=== PATIENT | male | born 1975 | race Caucasian/White ===

== ENCOUNTER 2025-07-07 09:33 | Emergency (ER) | payer OTHER, MEDICAID ==
[~2025-07-07] VITALS: Ht 193 cm; Wt 110.9 kg
[2025-07-07 09:51] VITALS: BP 128/83; PULSE 79; RESP 18; TEMP 97.6; O2SAT 98
[2025-07-07] MEDS ORDERED: CARV3.122 PO (10:07)
--- NOTE | 2025-07-07 10:07 | Physician Documentation ---
HPI ~ General Chief Complaint: Medication Refill Stated Complaint: MED REQUEST Time Seen by MD: 09:58 History of Present Illness HPI Comments This is a 49-year-old gentleman, currently homeless, previously homeless in [facility], moved to [place] to be at the [employer], presents with a request for refill for carvedilol. He also wants to establish with the Cardiology. He used to be followed by [facility]. He denies any somatic complaints. Denies any chest pain or difficulty breathing. States that he is now drug-free and alcohol free. Medication Reconciliation Allergies: Coded Allergies: No Known Allergies (Unverified , 07/07/25) Review of Systems ROS 10 point review of systems was performed and unless noted above in HPI is negative for acute process/complaint. Physical Exam Physical Exam Vital Signs: Temperature: 97.6, Source: Temporal, Heart Rate: 79, Respiratory Rate: 18, BP: 128/83, Pulse Oximetry: 98, Weight: 110.900 Oxygen Flow Rate: 0 Physical Exam Physical examination: GENERAL: Awake, alert, oriented, GCS 15, no apparent distress, non-toxic appearing, answers questions, follows commands appropriately. Examined in triage HEENT: Atraumatic, normocephalic, pupils equal, extraocular muscles intact Active gross movements, sclerae anicteric, mucus membranes moist, no stridor. NECK: Midline, no JVD CARDIOVASCULAR: Good skin perfusion without evidence of pallor, mottling. PULMONARY: Nonlabored, symmetric chest rise, no audible wheezing, no accessory muscle use, no respiratory distress, speaking in full sentences. GASTROINTESTINAL: Not distended. NEUROLOGIC: Lucid with normal mental status. Normal facial symmetry. Moves all extremities symmetrically and with purpose. No truncal ataxia. Speech is fluid without evidence of dysarthria or aphasia, no focal deficits appreciated. EXTREMITIES: Acute deformities Skin: warm, dry PSYCHIATRIC: Normal affect, normal insight, normal concentration. Focused exam: [] Progress Results/Orders Results/Orders Vital Signs 07/07/25 09:51 Temp 97.6 Pulse 79 Resp 18 B/P (MAP) 128/83 Pulse Ox 98 O2 Flow Rate 0 Medical Decision Making Additional information obtaine: N/A (Attempted to obtain [place] records, nothing is visible) Findings Facility Status: ED Holds, E process The plan was discussed with the patient, who demonstrates clear understanding of the plan and is in agreement with the plan unless otherwise noted in the chart. All questions have been answered, all concerns were addressed unless otherwise documented. I was available throughout their ED stay for frequent reassessment and questions. Differential Diagnoses (considered and possible or likely): [Medication refill, hypotension, medication noncompliance, homelessness, poor health literacy] ??Differential Diagnoses (considered and unlikely, not requiring evaluation currently): [Denies any somatic complaints] MDM Data Please see [facility] for the following: Independent Historians and external Records Review. Historian: [Patient] Independent Historians: ?[Record review attempt] Medication Management: [Reviewed medication list] Social History and determinants: [Reviewed] Please see the body of the note for the following: Any independent interpretations of ECG, imaging studies. All vitals signs/haemodynamics, ordered tests were independently reviewed and interpreted by myself. Nursing triage complaint and vitals reviewed, additional nursing notes were reviewed as available and I agree unless otherwise noted or documented in contradiction in the chart Vital Signs: Independently reviewed Labs: Independently interpreted Imaging: Independently interpreted Old Medical Records: Independently reviewed, see [facility] for relevant summary and information Additionally notably showing: [This is now hemodynamically stable] Tests considered but not ordered include: [Hematologic workup and imaging has been considered but does not appear to be necessary given clinical nature of diagnosis] Social Determinants of Health Impact: Patient was evaluated in [facility], [facility] [place] to healthcare due to below par ratio of patient to medical providers. [] Comorbid Conditions Impacting Present Evaluation and Care/Treatment: [Hypotension, homelessness] Management Discussions with other Healthcare Providers: [none] Treatment and Disposition Medication Management (Given or considered): []. See EMR for details Consideration for Hospitalization/Escalation/Deescalation of Care: Admission for observation has been considered, [however the patient is able to tolerate p.o., their symptoms are controlled, they are able to rely on oral medications, and t heir chief complaint/diagnosis can be managed on outpatient basis.] ?ED Course:?[No clinical deterioration] ?Shared decision making:?[Patient is hemodynamically stable for discharge home with follow with their primary care provider. [ ] Specific and cautious return precautions provided and discussed with full understanding. Any incidental findings were also discussed and follow up recommendations given. [] All questions answered. Patient/family were able to verbalize back return precautions. Patient/family agree to plan. Copies of imaging and laboratory studies were provided.] Code status:?FULL Please see the full Electronic Medical Record for full details of nursing documentation, medications list, other records of complete past medical history and conditions, vital signs, laboratory studies, and any radiologic study interpretations by radiologists. Portions of this note were completed using [employer] dictation software and as a result there may exist minor errors in spelling. I have reviewed elements of past family and social history and agree as included in note. Differential Dx:Considerations: Include: Adverse circumstances, Economic, Psychosocial, Medical services unavail., Medication refill Departure Disposition: HOME / SELF CARE / HOMELESS Impression: Primary Impression: Encounter for medication refill Additional Impression: Hypertension Condition: Improved Discharge Instructions: Medicine Refill at the Emergency Department Referrals: NO PRIMARY CARE PROVIDER (PCP) Prescriptions Carvedilol (Carvedilol) 3.125 Mg Tablet 1 TAB PO Q12H for 30 Days, #60 TAB 0 Refills Prov: SAMREEN HARVEY DO 07/07/25 Education Educated: Patient Educated regarding: diagnosis, treatment, prognosis, need for follow up (The patient needs to establish with a PCP and cardiology) Signature Scribe Signature: No scribe Attestation: This note accurately reflects clinical decisions, work performed by myself, DO WES Loomis NICHOLAS M DO Jul 07, 2025 10:07
== END 2025-07-07 10:22 | disposition home or self-care (01) ==
LOC: ER 09:34
DX: I10 Essential (primary) hypertension (principal); Z59.00 Homelessness unspecified; Z76.0 Encounter for issue of repeat prescription
CPT/HCPCS: 99282

== ENCOUNTER 2025-07-13 09:45 | Emergency (ER) | payer OTHER, MEDICAID ==
[~2025-07-13] VITALS: Ht 193 cm; Wt 112.6 kg
[~2025-07-13 09:45] MED LIST: CARV3.122 PO
[2025-07-13 09:56] VITALS: BP 138/87; PULSE 70; RESP 16; TEMP 97.3; O2SAT 97
--- NOTE | 2025-07-13 10:10 | Physician Documentation ---
History of Present Illness ~ Chief Complaint: Medical Clearance Stated Complaint: MED CLEARANCE Time Seen by MD: 09:57 HPI 49-year-old male resident of local she had been facilities he is needing TB screening and local cardiology Clinic follow up information. Reports he has been taking his cardiac medications yet as needed this area needs to get established. Denies B type symptoms such as cough, hemoptysis, night sweats. Reports that he was treated in the past for TB and this is his part of his annual screening. He is otherwise in no acute distress. Medication Reconciliation Allergies: Coded Allergies: No Known Allergies (Unverified , 07/13/25) Scheduled Carvedilol (Carvedilol), 1 TAB PO Q12H Review of Systems All Other Systems at this time: Reviewed and Negative Constitutional: Denies: chills, diaphoresis, fever, malaise, weakness Respiratory: Denies: cough, shortness of breath, SOB with exertion, SOB at rest, hemoptysis Physical Exam Vital Signs: RN Vital Signs have been reviewed: Yes, Temperature: 97.3, Source: Temporal, Heart Rate: 70, Respiratory Rate: 16, BP: 138/87, Pulse Oximetry: 97, Weight: 112.600 Oxygen Flow Rate: 0 General Appearance: alert, WD/WN, no apparent distress Head: no evidence of injury Face: normal Pupils/EOM/Fundus: PERRLA Neck: non-tender Respiratory: lungs clear, normal breath sounds Chest: no accessory muscle use Cardiovascular: normal peripheral pulses, regular rate, rhythm Gastrointestinal: non-tender Skin: warm/dry Neurologic: oriented x4 Motor / Sensory: no motor deficit Affect: appropriate Appearance/Memory/Insight: appropriate appearance Thoughts/Hallucinations: normal thought pattern Behavior/Eye contact/Speech: cooperative Progress Results/Orders Results/Orders Orders - PROSPER SOLIS PAC Chest,Two Views (07/13/25 09:58) Completed Orders - PROSPER SOLIS PAC Chest,Two Views (07/13/25 09:58) Vital Signs 07/13/25 09:56 Temp 97.3 Pulse 70 Resp 16 B/P (MAP) 138/87 Pulse Ox 97 O2 Flow Rate 0 Medical Decision Making Additional information obtaine: N/A Findings Patient warrants chest X-ray imaging two views for TB screening. No B symptoms at this time. Prelim x-ray screening is negative for infiltrate, effusions and/or obvious current infection or granulomatous/scarring. Pending radiology review. Patient is discharged from the emergency department with medical clearance instructed to follow up with local Cardiology. Patient is safe for discharge. Differential Dx:Considerations: Include: Intoxication-Alcohol, Intoxication- Other drug, Personality disorder, Substance abuse disorder, Acute delirium, Alcohol withdrawl syndrom, Encephalopathy, Hepatitis, Medically stable Departure Disposition: HOME / SELF CARE / HOMELESS Impression: Primary Impression: General medical exam Discharge Instructions: Medical Screening Exam Additional Instructions: Your chest x-ray preliminarily is without evidence of active TB. Please follow up with local [facility] for healthcare maintenance. Referrals: NO PRIMARY CARE PROVIDER (PCP) ROBIN FLORES MD 2 weeks Education Educated: Patient Educated regarding: diagnosis, treatment, prognosis Signature Scribe Signature: . Attestation: . PROSPER SOLIS PAC Jul 13, 2025 10:10
--- NOTE | 2025-07-13 10:19 | RADIOLOGY REPORT ---
DI CHEST,TWO VIEWS CLINICAL HISTORY: clearance COMPARISON: None TECHNIQUE: Frontal and lateral view of the chest was obtained FINDINGS: Lines and Tubes: None Lungs: No focal consolidation. Pleura: No effusion. No pneumothorax. Cardiomediastinal contours: Unremarkable Bones: No acute osseous abnormality. IMPRESSION: No acute cardiopulmonary disease.
== END 2025-07-13 10:53 | disposition home or self-care (01) ==
LOC: ER 09:45
DX: Z00.00 Encounter for general adult medical examination without abnormal findings (principal); R05.9 Cough, unspecified; R04.2 Hemoptysis; Z79.899 Other long term (current) drug therapy
CPT/HCPCS: 71046; 99283

== ENCOUNTER 2025-08-10 12:08 | Emergency (ER) | payer OTHER, MEDICAID ==
[~2025-08-10] VITALS: Ht 193 cm; Wt 115.9 kg
[2025-08-10 12:20] VITALS: BP 148/97; PULSE 83; RESP 15; TEMP 98; O2SAT 98
[2025-08-10] MEDS ORDERED: CARV3.122 PO (13:23)
--- NOTE | 2025-08-10 13:23 | Physician Documentation ---
HPI ~ General Chief Complaint: Medication Request Stated Complaint: MED REQUEST Time Seen by MD: 12:56 History of Present Illness HPI Comments This is a 49-year-old male with a history of hypertension who presents requesting refill of his carvedilol, patient reports no other acute symptoms or concerns. Patient reports that he has a follow up appointment with new primary care provider next week. Medication Reconciliation Allergies: Coded Allergies: No Known Allergies (Unverified , 07/13/25) Scheduled Carvedilol (Carvedilol), 1 TAB PO Q12H Past Medical History Past Medical History: Hypertension Review of Systems ROS As stated above in the HPI, otherwise all systems are reviewed and negative. Physical Exam Physical Exam Vital Signs: Temperature: 98.0, Heart Rate: 83, Respiratory Rate: 15, BP: 148/97, Pulse Oximetry: 98, Weight: 115.910 Oxygen Flow Rate: 0 Physical Exam VITALS: Reviewed and as above. GENERAL: Alert, nontoxic appearing, no apparent distress. RESPIRATORY: No increased work of breathing, no respiratory distress, speaking in full clear sentences Progress Results/Orders Results/Orders Vital Signs 08/10/25 12:20 Temp 98.0 Pulse 83 Resp 15 B/P (MAP) 148/97 Pulse Ox 98 O2 Flow Rate 0 Medical Decision Making Additional information obtaine: old records Findings Patient is otherwise well-appearing and has follow up soon for further management of blood pressure medications, patient's medication will be refilled the previous dosage as he has been stable at this dose. No other acute symptoms or concerns reported and patient is appropriate for outpatient follow up. Differential Dx:Considerations: Include: Adverse circumstances, Economic, Psychosocial, Medical services unavail., Medication refill, Medication non- compliance, Other (Hypertensive crisis) Departure Time of Disposition: 13:22 Impression: Primary Impression: Encounter for medication refill Additional Impression: History of hypertension Condition: Improved Additional Instructions: Please take medications previously prescribed, follow up as scheduled with your primary care doctor for further management of your blood pressure medicine. Please follow up with your primary care provider in the next few days. Please return to the emergency department for any new or worsening concerning symptoms. Referrals: NO PRIMARY CARE PROVIDER (PCP) Prescriptions Carvedilol (Carvedilol) 3.125 Mg Tablet 1 TAB PO Q12H for 30 Days, #60 TAB 0 Refills Prov: OTTO SERRANO 08/10/25 Education Educated: Patient Educated regarding: diagnosis, treatment, prognosis, need for follow up Signature Scribe Signature: No scribe Attestation: The note accurately reflects work and decisions made by me.SHANNEN Spencer 08/10/25 20:59 OTTO SERRANO Aug 10, 2025 13:23
== END 2025-08-10 13:26 | disposition home or self-care (01) ==
LOC: ER 12:09
DX: I10 Essential (primary) hypertension (principal); Z76.0 Encounter for issue of repeat prescription; Z79.899 Other long term (current) drug therapy
CPT/HCPCS: 99282